=== PATIENT | female | born 1965 | race Native Hawaiian/Other Pacific Islander ===

== ENCOUNTER 2022-04-04 14:51 | Outpatient (CLI) | payer OTHER | END 2022-04-04 20:34 | disposition home or self-care (01) | LOC: CT 14:51 | PROVIDERS: ATTEND Family Medicine | DX: R10.9 Unspecified abdominal pain (principal); R63.4 Abnormal weight loss; R68.81 Early satiety; R42 Dizziness and giddiness; I10 Essential (primary) hypertension; E11.9 Type 2 diabetes mellitus without complications; E78.2 Mixed hyperlipidemia | CPT/HCPCS: 36415; 82565; 84520; Q9963 ==

== ENCOUNTER 2022-04-14 10:52 | Outpatient (CLI) | payer OTHER ==
[2022-04-14 11:15] LABS: PLATELET COUNT 272 K/uL (152-353)
[2022-04-14 11:42] LABS: POTASSIUM 4.5 mmol/L (3.6-5.2)
== END 2022-04-14 18:58 | disposition home or self-care (01) ==
LOC: LABW 10:52
PROVIDERS: ATTEND Family Medicine
DX: R10.9 Unspecified abdominal pain (principal); R63.4 Abnormal weight loss; I10 Essential (primary) hypertension; E11.9 Type 2 diabetes mellitus without complications; R68.81 Early satiety; E78.2 Mixed hyperlipidemia
CPT/HCPCS: 36415; 80053; 80061; 81002; 83036; 84439; 84443; 85027

== ENCOUNTER 2022-04-30 09:43 | Outpatient (CLI) | payer OTHER | END 2022-04-30 19:10 | disposition home or self-care (01) | LOC: MAMMO 09:43 | PROVIDERS: ATTEND Family Medicine | DX: Z12.31 Encounter for screening mammogram for malignant neoplasm of breast (principal) ==